=== PATIENT | male | born 1960 | race Caucasian/White ===

== ENCOUNTER → 2016-05-17 | Day surgery (SDC) | payer BC ==
[~2016-05-17] MED LIST: BUPIVACAINE HCL PF 0.5% 10 ML VIAL ONE; LACTATED RINGER'S 1000 ML INJ 1,000 ML ONE; MIDAZOLAM HCL 2 MG/2 ML VIAL ONE; ONDANSETRON HCL 4 MG/2 ML VIAL IV PUSH ONE; PROPOFOL 200 MG/20 ML AMP IV ONE; ceFAZolin 2 GM PREMIX 50 ML ONE
--- NOTE | 2016-05-18 16:56 | MP ---
cc: BEV PORTILLO DP DATE OF SURGERY 05/17/2016 PREOPERATIVE DIAGNOSIS Left foot fifth digit tumor suspicious for a atypical nevus versus melanoma. POSTOPERATIVE DIAGNOSIS Left foot fifth digit tumor suspicious for a atypical nevus versus melanoma. PROCEDURES PERFORMED Left fifth digit amputation. SPECIMEN Left fifth digit for pathological analysis to verify margins of involvement. ESTIMATED BLOOD LOSS Less than 30 ml. COMPLICATIONS None. ANESTHESIA General with local approximately 7 mL of a proximal field block at the hind foot. TOURNIQUET TIME 10 minutes at a setting of 250 mmHg. PLAN OF ACTIVITY PACU then DC home when stable per same-day surgery criteria. PROCEDURE IN DETAIL Under mild sedation the patient was brought to the operating room, placed on the operative table in the supine position. Following the induction of general anesthesia, local anesthesia was obtained about the foot utilizing standard block fashion being careful not to inject in the tumor site. The patient's left foot was scrubbed, prepped and draped in usual aseptic fashion. The foot was elevated, exsanguinated and the previously placed mid ankle tourniquet was inflated to 250 mmHg. The foot was examined. There was noted to be a multilobular, hyperpigmented purple with different colorations of lesion encompassing the near the entire distal fifth digit. A measurement took place verifying 1.5 cm of a clean skin margin clinically. At this time a full thickness fishmouth incision took place down to periosteum, sharply disarticulating the fifth digit. This was sent off the field for pathological analysis. The margin was examined. There was no discoloration deep within the tissue, bone, ligaments, fascia. Blood vessels were Bovied and ligated as deemed appropriate. The wound was flushed with copious amounts of normal saline. Deep dermal closure took place utilizing Vicryl. Skin was closed utilizing nylon. Upon relieving the tourniquet there is a prompt hyperemic response to all digits without any delayed capillary fill time to digits one, two, three and four. A bulky bandage placed. The patient transferred from OR to PACU with all vital signs stable. He is to rest, ice, elevate. He will follow up within 3-5 days and of course we will follow along the pathological margin results planning our next step, possibly sending him back to Dr. Wright for sentinel lymph node if indicated. JOSÉ MIGUEL Aviles /1:32 PM /4:44 PM
== END | disposition home or self-care (01) ==
LOC: ESDC 11:46
PROVIDERS: ATTEND Podiatrist Foot & Ankle Surgery
DX: D49.89 Neoplasm of unspecified behavior of other specified sites (principal)
CPT/HCPCS: 01470; 01480; 28820; 88305; 88311; J0690; J2250; J2405; J3010; J7120

== ENCOUNTER → 2016-06-29 | Day surgery (SDC) | payer BC ==
[~2016-06-29] MED LIST changes: -BUPIVACAINE HCL PF 0.5% 10 ML VIAL ONE; +BUPIVACAINE/EPINEPHRINE 0.5% PF 30 ML VIAL ONE; +ISOSULFAN BLUE 50 MG/5 ML VIAL SQ ONE; +LIDOCAINE 1%/EPINEPHrine 1:100,000 SOLN 50 ML VIAL ONE; -ceFAZolin 2 GM PREMIX 50 ML ONE; +ceFAZolin INJ 1,000 MG VIAL ONE
--- NOTE | 2016-07-01 05:37 | TN ---
cc: CARIDAD SINGLETARY DATE OF SURGERY 06/29/2016 PREOPERATIVE DIAGNOSIS Left fifth toe nodular melanoma, deep, status post left fifth toe amputation. POSTOPERATIVE DIAGNOSIS Left fifth toe nodular melanoma, deep, status post left fifth toe amputation. PROCEDURE [place] lymph node biopsy left inguinal lymph nodes. ATTENDING SURGEON MD Adriana [employer] Staff. ANESTHESIA General and local anesthetic. COMPLICATIONS None. BLOOD LOSS Less than 10 cc FINDINGS One grossly normal lymph node in the left inguinal lymph node basin at the inferior portion of the lymph node basin in the anterior thigh. INDICATIONS FOR PROCEDURE The patient is a 55-year-old male who was recently diagnosed with a nodular melanoma of his left fifth toe and is status post amputation by Dr. Flores of Podiatry. The patient had clear margins; however, due to the melanoma being thick and nodular type, sentinel lymph node biopsy in indicated for staging. PET scan full body showed no evidence of lymphadenopathy or metastatic disease. The risks, benefits and alternatives to the sentinel node biopsy was explained to the patient and his prior to procedure and the patient agreed to undergo the procedure. OPERATIVE PROCEDURE After informed consent was obtained, the patient was taken to the operating room placed in a supine position, placed under general anesthesia. The patient had undergone lymphoscintigraphy prior to the procedure and the site of the lymph node was marked in the left inguinal area. We then shaved, prepped and draped the left thigh and inguinal area in sterile fashion. Time-out was performed. We used local anesthetic at the planned incision site which was right above the area marked lymph node by the radiologist. We excised the skin approximately 4 cm with the 15-blade scalpel. We used Bovie electrocautery to dissect the subcutaneous tissue into the superficial fascia of the thigh. We did use the probe to guide us and just under our incision there was a visible and palpable lymph node that was hot. This was completely excised with Bovie electrocautery and was sent for permanent processing. This was grossly normal. We had excellent hemostasis. There was no evidence of any lymphatic leak. We placed multiple 3-0 [id number] Vicryl sutures to close the space in the lymphatic tissue created by the lymph node removal. We used deep dermal 3-0 Vicryls and 4-0 Monocryl and Dermabond to close the skin. The patient at this point in time was discontinued from anesthesia and taken to PACU in stable condition. No apparent complications. All counts were correct. I was scrubbed for the entire procedure. MD PELON SilvaG/SSB /8:46 PM /5:21 AM
== END | disposition home or self-care (01) ==
LOC: ESDC 06:40
PROVIDERS: ATTEND Surgery
DX: C43.72 Malignant melanoma of left lower limb, including hip (principal); Z89.422 Acquired absence of other left toe(s)
CPT/HCPCS: 00400; 38500; 88307; 88341; 88342; J0690; J2250; J2405; J3010; J7120; Q9968